=== PATIENT | female | born 1985 | race Caucasian/White ===

== ENCOUNTER 2017-11-09 02:35 | Emergency (ER) | payer SELFPAY ==
[2017-11-09] MEDS ORDERED: Ketorolac Tromethamine 60 MG/2 ML VIAL ONE (03:18)
== END 2017-11-09 03:30 | disposition home or self-care (01) ==
LOC: ERS 02:35
DX: K02.9 Dental caries, unspecified (principal); K03.81 Cracked tooth; E03.9 Hypothyroidism, unspecified; Z79.899 Other long term (current) drug therapy
CPT/HCPCS: 96372; J1885

== ENCOUNTER 2018-10-08 05:26 | Emergency (ER) | payer OTHER, SELFPAY ==
[2018-10-08 06:22] LABS: #Basophils 0.1 thou/uL (0.0-0.2); #Eosinphils 0.6 thou/uL (0.0-0.7); #Lymphocytes 1.8 thou/uL (1.20-3.40); #Monocytes 0.7 thou/uL (0.11-0.59); #Neutrophils 9.1 thou/uL (1.40-6.50); %Basophils 0.6 % (0.0-1.0); %Eosinophils 4.8 % (0.0-10.0); %Lymphocytes 14.8 % (21.0-51.0); %Monocytes 5.7 % (0.0-10.0); %Neutrophils 74.2 % (42.0-75.0); Hemoglobin 12.1 g/dL (12.0-16.0); Mean Corpuscular HGB CONC 33.5 g/dL (32.0-36.0); Mean Corpuscular Hemoglobin 28.2 pg (27.0-31.0); Mean Corpuscular Volume 84.4 fL (78.0-98.0); Mean Platelet Volume 6.8 fL (7.4-10.4); Platelet Count 333 thou/uL (130-400); RBC Distribution Width 15.8 % (11.5-14.5); White Blood Cell (WBC) Count 12.2 thou/uL (4.8-10.8)
[2018-10-08 06:26] LABS: Bilirubin Negative (Negative); Blood, Urine Small (Negative); Clarity CLEAR (Clear); Glucose, Urine (Dipstick) Negative (Negative); Leukocyte Negative (Negative); Nitrite Negative (Negative); Protein, Urine (Dipstick) Negative (Neg-Trace); Specific Gravity, Urine 1.026 (1.002-1.036); Urobilinogen 0.2 mg/dL (0.2-1.0)
[2018-10-08 06:31] LABS: Bacteria/HPF None Seen HPF (None Seen); Hyaline Casts/LPF 4-6 HYALINE CAST LPF (0-3 Hyaline); Pathc Cast-AUWi Flag 1.01 (0-2.49); WBC/HPF 0-3 HPF (0-3)
[2018-10-08 06:33] LABS: ALT (SGPT) 11 U/L (8-55); AST (SGOT) 14 U/L (5-34); Alkaline Phosphatase 53 U/L (40-150); Anion Gap 12 mmol/L (10-20); BUN (Urea Nitrogen) 7 mg/dL (7.0-18.7); Bilirubin, Total 0.4 mg/dL (0.2-1.2); Calc. Creatinine Clearance 0 mL/min (70-130); Calcium 9.6 mg/dL (7.8-10.44); Carbon Dioxide 21 mmol/L (22-29); Chloride 106 mmol/L (98-107); Estimated GFR-MDRD 85; Globulin 3.2 g/dL (2.4-3.5); Glucose 97 mg/dL (70-105); Potassium 3.3 mmol/L (3.5-5.1); Protein, Total 7.2 g/dL (6.0-8.3); Sodium 136 mmol/L (136-145)
--- NOTE | 2018-10-08 08:33 | ULT ---
OBSTETRIC SONOGRAM TRANSABDOMINAL IMAGING: HISTORY: Early . Vaginal bleeding. FINDINGS: Single intrauterine gestation in variable presentation. Heart motion at 165 b.p.m. Measurements cor relate with 11 weeks 5 days gestational age giving an estimated date of delivery of 04/24/2019. A small amount of subchorionic fluid along the anterior margin of the lower uterine segment. Right ovary not well visualized. Left ovary is 2.8 cm with good color and spectral Doppler flow. IMPRESSION: 1. Single viable intrauterine gestation. Estimated gestational age 11 weeks 5 days. 2. Small subchorionic hematoma anterior wall of the lower uterine segment. POS: [facility]
== END 2018-10-08 07:11 | disposition home or self-care (01) ==
LOC: ERS 05:26
DX: O20.0 Threatened abortion (principal); O99.281 Endocrine, nutritional and metabolic diseases complicating pregnancy, first trimester; E03.9 Hypothyroidism, unspecified; Z79.899 Other long term (current) drug therapy; Z3A.11 11 weeks gestation of pregnancy
CPT/HCPCS: 36415; 51701; 76856; 80053; 81003; 81015; 84702; 85025; 86900; 86901; 93976; A4353

== ENCOUNTER 2019-01-16 16:32 | Emergency (ER) | payer OTHER ==
[2019-01-16] MEDS ORDERED: Acetaminophen 500 MG TAB ONE (17:01)
== END 2019-01-16 17:35 | disposition home or self-care (01) ==
LOC: SCSER 16:32
DX: O99.512 Diseases of the respiratory system complicating pregnancy, second trimester (principal); J10.1 Influenza due to other identified influenza virus with other respiratory manifestations; Z3A.20 20 weeks gestation of pregnancy; Z77.22 Contact with and (suspected) exposure to environmental tobacco smoke (acute) (chronic); Z79.899 Other long term (current) drug therapy
CPT/HCPCS: 87804; 99283

== ENCOUNTER 2019-02-28 22:51 | Emergency (ER) | payer OTHER | END 2019-02-28 23:42 | disposition short-term general hospital (02) | LOC: SCSER 22:51 | DX: O36.8130 Decreased fetal movements, third trimester, not applicable or unspecified (principal); O16.3 Unspecified maternal hypertension, third trimester; Z3A.12 12 weeks gestation of pregnancy; Z79.899 Other long term (current) drug therapy | CPT/HCPCS: 99284 ==

== ENCOUNTER 2019-03-01 00:11 | Inpatient (IN) | payer OTHER ==
--- NOTE | 2019-03-01 00:34 | PDOC.LDHP ---
Labor and Delivery H&P Chief complaint: decreased movement HPI: Patient of Mackenzie Hollis Here from [facility] Here for Decreased FM (FHTs documented at [facility]) Patient is a 33 yo G1 at 32 weeks by her stated EGA, here for decreased FM most of the day. She called Dr Hollis and told her also of pink dsch with Dr hollis stated was likely from recent coitus. No GILLESPIE, no VB, no LOF. BP in [facility] was 178/ 108 but was 128/92 immediately retaken (per ED MD phone call). BP on their retake was 144/99 Review of Systems: complete ROS completed and as per HPI Current gestational age (weeks): 32 Grav: 1 Para: 0 Current complications: other (HX SVT on Toprol) Current medications: pre- vitamins Previous surgical history: none Allergies/Adverse Reactions: Allergies Allergy/AdvReac Type Severity Reaction Status Date / Time No Known Drug Allergies Allergy Unverified 02/13/15 17:50 Social history: none - Physical Exam Abnormal vital signs: 179/89 18 90 afebrile General: NAD, resting Heart: RRR Lungs: CTAB Abdomen: gravid Extremeties: no edema FHT: category 1 [place] contractions every: CTX on toco about every 2 min - Assessment Decreased FM at 32 weeks, G1, HX SVT on Toprol...now with severe range BPs. - Plan Plan: admit to L&D (I have notified Dr Hollis. I have discussed severe range BPs with the patient and her . I will start celestone in case delivery is needed.I will order a BPP. We will do serial BPs in L&D. I have ordered a CMP, CBC and Up/cr. I have added a transvag sono for CX length due to "pink dsch"..I do not suspect LOF. Per personal communication with Dr Hollis, patient also has high anxiety state...this may be contributing some to BP. She has requested I start IVFs as well...will order LR.)
[2019-03-01] MEDS ORDERED: Promethazine HCl 25 MG/ML VIAL IM PRN ×4 (00:52→11:00)
[2019-03-01] MEDS ORDERED: Butorphanol Tartrate 1 MG/ML VIAL SLOW IVP PRN (00:52)
[2019-03-01] MEDS ORDERED: Ondansetron PF 4 MG/2 ML Vial IVP PRN ×4 (00:52→06:52)
[2019-03-01] MEDS ORDERED: Betamet Acet/Betamet Na Ph 30 MG/5 ML VIAL IM SCH (01:00)
[2019-03-01] MEDS ORDERED: Lactated Ringer's 500 ML IV SCH (01:00)
[2019-03-01 01:02] VITALS: BMI 27.8
--- NOTE | 2019-03-01 01:07 | PDOC.EVN ---
Event Note - Event Note Event Note: If repeat BP still severe range (15-20 minutes after first)...will need labetolol 20mg SIVP stat
[2019-03-01] MEDS ORDERED: Labetalol HCl 100 MG/20 ML VIAL SLOW IVP SCH (01:15)
[2019-03-01] MEDS: Lactated Ringer's 1,000 ML IV SCH ×2 (01:19→14:06)
[2019-03-01] MEDS ORDERED: Labetalol HCl 100 MG/20 ML VIAL ONE (01:19)
[2019-03-01 01:59] LABS: Hemoglobin 13.2 g/dL (12.0-16.0); Mean Corpuscular HGB CONC 34.6 g/dL (32.0-36.0); Mean Corpuscular Hemoglobin 32.6 pg (27.0-31.0); Mean Corpuscular Volume 94.3 fL (78.0-98.0); Mean Platelet Volume 7.7 fL (7.4-10.4); Platelet Count 333 thou/uL (130-400); RBC Distribution Width 11.6 % (11.5-14.5); Red Blood Cell (RBC) Count 4.04 mill/uL (4.20-5.40)
[2019-03-01 02:12] LABS: ALT (SGPT) 11 U/L (8-55); AST (SGOT) 16 U/L (5-34); Albumin 3.9 g/dL (3.5-5.0); Alkaline Phosphatase 101 U/L (40-150); Anion Gap 15 mmol/L (10-20); BUN (Urea Nitrogen) 6 mg/dL (7.0-18.7); Bilirubin, Total 0.4 mg/dL (0.2-1.2); Calc. Creatinine Clearance 123 mL/min (70-130); Calcium 9.5 mg/dL (7.8-10.44); Carbon Dioxide 23 mmol/L (22-29); Chloride 107 mmol/L (98-107); Estimated GFR-MDRD Greater than 90; Glucose 79 mg/dL (70-105); Potassium 3.8 mmol/L (3.5-5.1); Protein, Total 6.9 g/dL (6.0-8.3); Sodium 141 mmol/L (136-145)
--- NOTE | 2019-03-01 02:26 | PDOC.EVN ---
Event Note - Event Note Event Note: Follow up: Patient did recieve/require labetolol 20mg SIVP x 1...BPs now 120-130s/80s. BPP in progress. I reviewed the FHT tracing prior to BPP...minimal variability noted....await remainder of BPP. Sono tech did show me umbilical doppler..some reversal of flow noted. I have added biometrics to see if growth restricted.
[2019-03-01 02:30] LABS: HBSAg Index 0.33 S/CO (0-0.99); HIV (1/2) Antibody/Antigen Non-Reactive (NonReactive); HIV 1/2 INDEX 0.21 S/CO (<1.00); Hep B Surf Ag Non-Reactive S/CO (NonReactive)
[2019-03-01] MEDS ORDERED: Calcium Gluc 4.6 MEQ/10 ML (100 MG/ML) SLOW IVP PRN (02:57)
--- NOTE | 2019-03-01 02:57 | PDOC.EVN ---
Event Note - Event Note Event Note: Sono: [id number] which is less than 2.5th percentile for EGA based on weight to EGA chart. Baby vertex. BPP is 6/10 (with NST). Will relay to Dr Swartz...I recommend delivery for PRECLAMPSIA with the reversal of flow and growth restriction, per ACOG guidelines (PB on Growth Restriction) MagSulfate ordered. CX is 3cm.
[2019-03-01 02:59] LABS: Creatinine, Urine 94.04 mg/dL (47-110)
[2019-03-01] MEDS ORDERED: Magnesium Sulfate 20 GM/WATER 500 ML BAG IVPB SCH (03:00)
[2019-03-01] MEDS ORDERED: Magnesium Sulfate 20 gm/500 ml 20 GM/500 ML BAG IVPB SCH (03:00)
[2019-03-01] MEDS ORDERED: HYDROcodone/Acetaminophen 5/325 mg Tablet PO PRN ×3 (04:20→18:00)
[2019-03-01] MEDS ORDERED: NS / Oxytocin 40 units/1000ml 1,000 ML IV PRN (04:20)
[2019-03-01] MEDS ORDERED: Lidocaine 1% (PF) 30 ML VIAL SC PRN (04:20)
[2019-03-01] MEDS ORDERED: Ibuprofen 800 MG TAB PO PRN (04:20)
[2019-03-01] MEDS ORDERED: NS w/ Oxytocin 10 units 0 ML ONE (04:21)
[2019-03-01] MEDS ORDERED: Bicitra 30 ML UDCUP ONE (04:43)
[2019-03-01] MEDS ORDERED: CEFAZOLIN 2 GM in Premix Bag 1 BAG IVPB SCH (05:00)
[2019-03-01] MEDS ORDERED: CEFAZOLIN 1 GM in Sodium Chloride 0.9% 100 ML IVPB SCH (05:00)
[2019-03-01] MEDS ORDERED: Fentanyl 100 MCG/2 ML VIAL ONE (05:06)
[2019-03-01] MEDS ORDERED: MORPHINE 5 MG/10 ML PF VIAL ONE ×2 (05:07→07:31)
[2019-03-01] MEDS ORDERED: Ondansetron PF 4 MG/2 ML Vial ONE ×2 (05:07→13:16)
[2019-03-01] MEDS ORDERED: Oxytocin 10 UNITS/ML VIAL ONE (05:07)
[2019-03-01] MEDS ORDERED: ePHEDrine/0.9% NaCl/PF SYRINGE 50 mg/10 ml ONE (05:07)
[2019-03-01] MEDS ORDERED: Dexamethasone 4 mg/ml Vial ONE (05:07)
[2019-03-01] MEDS ORDERED: Ketorolac Tromethamine 30 MG/ML VIAL ONE ×2 (05:07→13:16)
[2019-03-01] MEDS ORDERED: PHENYLEPHRINE-NS 100 MCG/ML 10 ML SYRINGE ONE (05:08)
[2019-03-01 05:11] LABS: Syphilis Antibody Nonreactive (Nonreactive); Syphilis Antibody Index 0.03 S/CO (<1.00 Non-Reactive)
[2019-03-01] MEDS ORDERED: HYDROmorphone 2 MG/ML VIAL SLOW IVP PRN (05:53)
[2019-03-01] MEDS ORDERED: Ondansetron HCl/PF 4 MG/2 ML Vial IVP PRN (05:53)
[2019-03-01] MEDS ORDERED: L&D-Morphine 4 MG/ML VIAL SLOW IVP PRN (05:53)
[2019-03-01] MEDS ORDERED: diphenhydrAMINE 50 MG/ML VIAL IVP PRN ×2 (05:54→10:55)
[2019-03-01] MEDS ORDERED: Promethazine HCl 25 MG SUPP PR PRN ×2 (05:54→11:00)
[2019-03-01] MEDS ORDERED: Eucerin (Mineral Oil/Petrolatum,White) 30 gm Jar TOP PRN (05:54)
[2019-03-01] MEDS ORDERED: Ketorolac Tromethamine 30 MG/ML VIAL IVP PRN ×2 (05:54→11:00)
[2019-03-01] MEDS ORDERED: Naloxone HCl 0.4 mg/ml Vial IV PRN ×3 (05:54→11:01)
[2019-03-01] MEDS ORDERED: Naloxone HCl 0.4 mg/ml Vial IVP PRN ×3 (05:54→11:00)
[2019-03-01] MEDS ORDERED: Ketorolac Tromethamine 30 MG/ML VIAL IVP SCH (06:00)
[2019-03-01] MEDS ORDERED: Communication Order-Pharmacy FS SCH (06:00)
[2019-03-01 06:07] LABS: pH (Cord, venous) 7.09 (7.32-7.43)
[2019-03-01] MEDS ORDERED: diphenhydrAMINE 25 MG CAP PO PRN ×2 (06:52→20:41)
[2019-03-01] MEDS ORDERED: Adacel (T-DAP) 0.5 ML SYRINGE IM ONE (06:52)
[2019-03-01] MEDS ORDERED: Zolpidem Tartrate 5 MG TAB PO PRN (06:52)
[2019-03-01] MEDS ORDERED: NS / Oxytocin 40 units/1000ml 1,000 ML IV SCH (07:00)
[2019-03-01] MEDS ORDERED: Meperidine HCl/PF 25 MG/ML VIAL ONE ×2 (07:03→07:39)
[2019-03-01] MEDS: Meperidine HCl/PF 25 MG/ML VIAL SLOW IVP PRN ×2 (07:04→07:39)
[2019-03-01] MEDS ORDERED: Promethazine HCl 25 MG/ML VIAL ONE (07:11)
--- NOTE | 2019-03-01 07:46 | ULT ---
PRELIMINARY REPORT/[facility]/EMERGENCY AFTER HOURS PROCEDURE: Addendum created by Lenka Villarreal MD on 03/01/2019 4:31 AM Central Time ( & [place]) Findings were discussed with Dr. Swartz at 03/01/2019 4:30 AM CDT. Initial Report created on 03/01/2019 4:23 AM Central Time ( & [place]) EXAM: US Doppler Velocimetry of the Umbilical Artery EXAM DATE/TIME: 03/01/2019 2:00 AM CLINICAL HISTORY: 33 years old, female; Signs and symptoms; Lmp or gestational age (in weeks): 32wks; Other: Pih, decreased movement; TECHNIQUE: Imaging protocol: US Doppler velocimetry of the umbilical artery with Doppler color and waveform analysis. COMPARISON: No relevant prior studies available. FINDINGS: Umbilical cord and insertion: Cord insertion not evaluated on this exam. Umbilical artery Doppler: Reversal of flow visualized in the umbilical artery. Umbilical artery peak systolic velocity: Peak systolic velocity -45 cm/s Umbilical artery systolic to diastolic ratio: S/D ratio 2.87 IMPRESSION: Abnormal umbilical artery Doppler exam with reversed end diastolic flow. EXAM: US , Transvaginal EXAM DATE/TIME: 03/01/2019 2:00 AM CLINICAL HISTORY: 33 years old, female; Signs and symptoms; Lmp or gestational age (in weeks): 32wks; Other: Pih, decreased movement; TECHNIQUE: Imaging protocol: Real-time transvaginal obstetrical ultrasound of the maternal pelvis and a first trimester with image documentation. Transvaginal imaging was used for better evaluation of the fetus and adnexa. COMPARISON: No relevant prior studies available. FINDINGS: GESTATION: Gestation: Single living intrauterine gestation. Heart rate: heart rate 128 beats per minute. Presentation: Vertex positioning. Placenta: Left placenta. Amniotic fluid: SAMEER 14.3 cm. BIOMETRY: Estimated gestational age: Gestational age by ultrasound estimated at 29 weeks and 0 days. Clinical gestational age of 32 weeks and 5 days. Estimated weight: Estimated weight of 1232 g. Biparietal diameter: Biparietal diameter 7.6 cm, which would correspond to a 30 week and 3 day . Head circumference: Head circumference 26.8 cm which would correspond to a 28 week and 3 day . Abdominal circumference: Abdominal circumference 24.2 cm, which would correlate to a 28 week and 4 day . Femur length: Femur length 5.2 cm, which would correspond to a 27 week and 5 day . MATERNAL: Cervix: The cervix is shortened to 0.5 cm. IMPRESSION: 1. Single living intrauterine gestation which is small for gestational age for provided LMP of 07/15/2018. 2. Cervical shortening to 0.5 cm. EXAM: US Biophysical Profile Without Non-Stress Test EXAM DATE/TIME: 03/01/2019 2:00 AM CLINICAL HISTORY: 33 years old, female; Signs and symptoms; Lmp or gestational age (in weeks): 32wks; Other: Pih, decreased movement; TECHNIQUE: Imaging protocol: US biophysical profile without non-stress testing. COMPARISON: No relevant prior studies available. FINDINGS: Breathin/2 Gross body movements: 2/2 tone: 2/2 Qualitative amniotic fluid: 2/2 IMPRESSION: Biophysical profile score is 6 out of 8. Thank you for allowing us to participate in the care of your patient. Dictated and Authenticated by: Lenka Villarreal MD 03/01/2019 4:23 AM Central Time ([place] & [place]) FINAL REPORT SONOGRAPHIC BIOPHYSICAL PROFILE EXAM PELVIC SONOGRAM TRANSVAGINAL IMAGING UMBILICAL SPECTRAL DOPPLER EVALUATION 03/01/2019 performed on emergency basis at 0235 hours HISTORY: Decreased movement. Third trimester gestation. FINDINGS: Agree with the preliminary report by Dr. Villarreal from [facility]. Sonographic biophysical profile score is 6/8. breathing movement not well visualized. Single intrauterine gestation, small for gestational age. Shortening of the cervix at 0.5 cm. Reversa l of flow was shown in the umbilical artery. Transcribed Date/Time: 03/01/2019 8:31 AM
[2019-03-01] MEDS: Morphine 4 MG/ML VIAL SLOW IVP PRN ×2 (08:17→10:58)
[2019-03-01] MEDS ORDERED: Morphine 2 MG/ML SYRINGE SLOW IVP PRN (11:06)
[2019-03-01] MEDS: Metoprolol Tartrate 100 MG TAB PO SCH ×2 (11:44→20:50)
[2019-03-01] MEDS ORDERED: Dexamethasone 20 MG/5 ML VIAL ONE (13:16)
[2019-03-01] MEDS ORDERED: ePHEDrine 50 MG/ML VIAL ONE (13:16)
[2019-03-01] MEDS: Simethicone Chewable 80 MG TAB PO PRN ×2 (13:35→20:50)
[2019-03-01] MEDS: HYDROcodone/Acetaminophen 5/325 mg Tablet PO PRN (17:55)
[2019-03-02] MEDS ORDERED: Ibuprofen 800 MG TAB PO SCH (06:00)
[2019-03-02] MEDS: HYDROcodone/Acetaminophen 5/325 mg Tablet PO PRN ×4 (09:32→21:47)
[2019-03-02] MEDS: Simethicone Chewable 80 MG TAB PO PRN ×2 (09:48→21:46)
[2019-03-02] MEDS: Docusate Calcium (SURFAK) 240 MG CAP PO PRN ×2 (09:48→21:46)
[2019-03-02] MEDS: Ibuprofen 800 MG TAB PO SCH ×2 (10:40→18:40)
[2019-03-02] MEDS: Metoprolol Tartrate 100 MG TAB PO SCH ×2 (10:49→21:46)
--- NOTE | 2019-03-02 16:15 | DN ---
DATE OF PROCEDURE: 03/01/2019 ADMITTING DIAGNOSES: 1. A 33-year-old, G1, at 32 weeks and 5 days with decreased movement. 2. Intrauterine growth restriction by ultrasound with noted umbilical Doppler reverse flow. 3. Non-reassuring heart tracing with a BPP performed, 04/05. 4. Prematurity, status post betamethasone x1 and then magnesium for neuroprotection. 5. Advanced cervical dilation at 3 cm, 70% effaced, and -3 station, but remote from delivery. 6. Unknown group B strep. POSTOPERATIVE DIAGNOSES: 1. A 33-year-old, G1, at 32 weeks and 5 days with decreased movement. 2. Intrauterine growth restriction by ultrasound with noted umbilical Doppler reverse flow. 3. Non-reassuring heart tracing with a BPP performed, 04/05. 4. Prematurity, status post betamethasone x1 and then magnesium for neuroprotection. 5. Advanced cervical dilation at 3 cm, 70% effaced, and -3 station, but remote from delivery. 6. Unknown group B strep. 7. Live-born male weighing 3 pounds 5 ounces with Apgars of 8 and 9 at one and five minutes respectively. PROCEDURE PERFORMED: Primary low-transverse section. INFANT CHILDCARE PROVIDER: Dr. Nicolas, Resident CLINICAL HISTORY: This patient is a 33-year-old, G1, who presented to Labor and Delivery triage at 32 weeks and 5 days for decreased movement. The patient was placed on the monitor and noted a nonreassuring heart tracing with a minimal variability, baseline, and no accelerations. Initially, she was mariah every 2 minutes, but was unaware that she was mariah regularly. The patient noted that she had not really felt movement for several hours since the day prior. The day prior, she had actually called her primary OB for complaint of vaginal spotting. The patient recently had intercourse and was given appropriate instructions to manage at that point in time, noting labor precautions and to have pelvic rest until her followup appointment. The patient also was being followed for small for gestational age as her last growth ultrasound at 29 weeks was significant for an estimated weight in the 10th percentile. The patient did not complain of decreased movement at that time, and when notified of her presence in Labor and Delivery, was advised to get a bolus of 2 L IV fluids, then follow at a rate and to await the laboratory and imaging studies ordered by the laborist on-call. A few hours later, a message regarding the followup exam was given and it was noted that the patient had a continued nonreassuring heart tracing without accelerations and BPP of 6/10. The ultrasonography also showed umbilical Dopplers with reverse flow and IUGR without a percentile given. The patient was ordered to receive betamethasone x1 for lung maturity and the plans for magnesium for neuroprotection were made. The patient had been checked and was noted to be 3-cm, 70% effaced, and -3 station, and at this point, she was no longer mariah. For unknown group B strep status, she was given Ancef despite a remote history of penicillin, which she thought rash was her reaction, and plans for a delivery by were made. DESCRIPTION OF PROCEDURE: The patient was taken to the operating room, where spinal anesthesia was obtained. She was laid in a supine position, and her Morgan catheter had been placed with the start of the magnesium and was draining clear fluid. She was prepped and draped in the usual sterile fashion, and after testing for adequate anesthesia, an incision was made in the lower abdomen in a Pfannenstiel manner, and this incision was carried down to the fascia. The fascia was then nicked in the midline and extended bilaterally. Bravo clamps x2 were used to elevate the rectus muscles, also the superior fascial border, and in similar fashion, the rectus and pyramidalis muscles were dissected off the lower fascial border. The muscles were then in the midline, and the peritoneum was breeched. This incision was then extended out bilaterally, and a bladder blade was placed. A bladder flap was then created with Metzenbaum and [place] pickups, and the incision on the uterus was then performed to the layer of the amnion. An amniotomy was performed with clear fluid, and the surgeon's hand was placed into the uterus and the head was delivered. It was noted that there was a loose nuchal cord around the neck, that was easily reduced. The cord was wrapped twice. The delivery of the anterior shoulder followed by the posterior shoulder, followed by the remainder of the 's body was performed. The cord was doubly clamped and cut, and the infant was shown to the parents and then handed off to the Neonatology nurses in attendance to the delivery. The infant was vigorous at that time. A section of the cord was taken for cord gas, which was resulted as a pH of 7.09. The placenta was then delivered manually intact with a 3-vessel cord, and the placenta was sent to Pathology for evaluation. The uterus was then exteriorized, and it was noted to already be firm. I cleansed of all debris, and the incision was then closed in a running locking fashion with excellent hemostasis. A second imbricating incision was performed, and the bladder flap was then reapproximated to the anterior surface of the uterus. The gutters were then cleansed of all debris, and Seprafilm was placed over the anterior surface of the uterus and the incision and secured with sterile water. Once this was performed, the uterus was placed back into the abdomen and the peritoneum was closed in a running fashion. The rectus muscles were reapproximated with [id number] sutures, and the prefascial gutters were cleansed of all debris. The fascia was then closed in a running fashion, and the subcutaneous tissues were irrigated, and the Bovie cautery was used to correct any bleeding. The subcutaneous tissues were then reapproximated with interrupted sutures of 2-0 plain gut, and the skin was closed in a running fashion with excellent hemostasis. Closure was then reinforced with Steri-Strips and Mastisol, and a Telfa and 4x4 with Tegaderm pressure dressing were placed over the incision. The patient tolerated the procedure well, and all needle, sponge, lap, and instrument counts were correct at the end of the procedure. She was able to recover in the recovery room in satisfactory condition. Her infant was taken to the NICU for continued care. Again, it was a live-born male weighing 3 pounds 5 ounces with Apgars of 8 and 9 at one and five minutes respectively. There were no other issues surrounding this delivery. IV FLUIDS: 2300. ESTIMATED BLOOD LOSS: 300. QUANTITATIVE BLOOD LOSS: 265. URINE OUTPUT: 350 of clear urine. The magnesium was stopped immediately post delivery, and the patient continued to recover in satisfactory condition. There were no other issues surrounding this delivery. Job ID: [id number]
[2019-03-03] MEDS: Ibuprofen 800 MG TAB PO SCH ×3 (02:01→17:26)
[2019-03-03] MEDS: HYDROcodone/Acetaminophen 5/325 mg Tablet PO PRN ×4 (02:06→15:06)
[2019-03-03] MEDS: Simethicone Chewable 80 MG TAB PO PRN (06:28)
[2019-03-03] MEDS: Metoprolol Tartrate 100 MG TAB PO SCH (09:51)
[2019-03-03] MEDS: Docusate Calcium (SURFAK) 240 MG CAP PO PRN (09:51)
[2019-03-03 12:27] VITALS: BP 129/74; TEMP 97.6
--- NOTE | 2019-03-03 13:39 | ULT ---
PRELIMINARY REPORT/[facility]/EMERGENCY AFTER HOURS PROCEDURE: Addendum created by Lenka Villarreal MD on 03/01/2019 4:31 AM Central Time ( & [place]) Findings were discussed with Dr. wSartz at 03/01/2019 4:30 AM CDT. Initial Report created on 03/01/2019 4:23 AM Central Time ( & [place]) EXAM: US Doppler Velocimetry of the Umbilical Artery EXAM DATE/TIME: 03/01/2019 2:00 AM CLINICAL HISTORY: 33 years old, female; Signs and symptoms; Lmp or gestational age (in weeks): 32wks; Other: Pih, decreased movement; TECHNIQUE: Imaging protocol: US Doppler velocimetry of the umbilical artery with Doppler color and waveform analysis. COMPARISON: No relevant prior studies available. FINDINGS: Umbilical cord and insertion: Cord insertion not evaluated on this exam. Umbilical artery Doppler: Reversal of flow visualized in the umbilical artery. Umbilical artery peak systolic velocity: Peak systolic velocity -45 cm/s Umbilical artery systolic to diastolic ratio: S/D ratio 2.87 IMPRESSION: Abnormal umbilical artery Doppler exam with reversed end diastolic flow. EXAM: US , Transvaginal EXAM DATE/TIME: 03/01/2019 2:00 AM CLINICAL HISTORY: 33 years old, female; Signs and symptoms; Lmp or gestational age (in weeks): 32wks; Other: Pih, decreased movement; TECHNIQUE: Imaging protocol: Real-time transvaginal obstetrical ultrasound of the maternal pelvis and a first trimester with image documentation. Transvaginal imaging was used for better evaluation of the fetus and adnexa. COMPARISON: No relevant prior studies available. FINDINGS: GESTATION: Gestation: Single living intrauterine gestation. Heart rate: heart rate 128 beats per minute. Presentation: Vertex positioning. Placenta: Left placenta. Amniotic fluid: SAMEER 14.3 cm. BIOMETRY: Estimated gestational age: Gestational age by ultrasound estimated at 29 weeks and 0 days. Clinical gestational age of 32 weeks and 5 days. Estimated weight: Estimated weight of 1232 g. Biparietal diameter: Biparietal diameter 7.6 cm, which would correspond to a 30 week and 3 day . Head circumference: Head circumference 26.8 cm which would correspond to a 28 week and 3 day . Abdominal circumference: Abdominal circumference 24.2 cm, which would correlate to a 28 week and 4 day . Femur length: Femur length 5.2 cm, which would correspond to a 27 week and 5 day . MATERNAL: Cervix: The cervix is shortened to 0.5 cm. IMPRESSION: 1. Single living intrauterine gestation which is small for gestational age for provided LMP of 07/15/2018. 2. Cervical shortening to 0.5 cm. EXAM: US Biophysical Profile Without Non-Stress Test EXAM DATE/TIME: 03/01/2019 2:00 AM CLINICAL HISTORY: 33 years old, female; Signs and symptoms; Lmp or gestational age (in weeks): 32wks; Other: Pih, decreased movement; TECHNIQUE: Imaging protocol: US biophysical profile without non-stress testing. COMPARISON: No relevant prior studies available. FINDINGS: Breathin/2 Gross body movements: 2/2 tone: 2/2 Qualitative amniotic fluid: 2/2 IMPRESSION: Biophysical profile score is 6 out of 8. Thank you for allowing us to participate in the care of your patient. Dictated and Authenticated by: Lenka Villarreal MD 03/01/2019 4:23 AM Central Time ([place] & [place]) FINAL REPORT SONOGRAPHIC BIOPHYSICAL PROFILE EXAM PELVIC SONOGRAM TRANSVAGINAL IMAGING UMBILICAL SPECTRAL DOPPLER EVALUATION 03/01/2019 performed on emergency basis at 0235 hours HISTORY: Decreased movement. Third trimester gestation. FINDINGS: Agree with the preliminary report by Dr. Villarreal from [facility]. Sonographic biophysical profile score is 6/8. breathing movement not well visualized. Single intrauterine gestation, small for gestational age. Shortening of the cervix at 0.5 cm. Reversa l of flow was shown in the umbilical artery. Transcribed Date/Time: 03/03/2019 1:39 PM
== END 2019-03-03 17:45 | disposition home or self-care (01) | DRG 788 ==
LOC: L&D/OP 00:11 → L&D 01:47 → OBSVTOIN 01:47 → L&D 05:57 → 3SW 09:27
PROVIDERS: ADMIT Obstetrics & Gynecology; ATTEND Obstetrics & Gynecology
PROC: 10D00Z1 Extraction of Products of Conception, Low, Open Approach (ICD-10-PCS; principal; 2019-03-02)
DX: O36.8130 Decreased fetal movements, third trimester, not applicable or unspecified (principal); O62.0 Primary inadequate contractions; O76 Abnormality in fetal heart rate and rhythm complicating labor and delivery; Z3A.32 32 weeks gestation of pregnancy; Z37.0 Single live birth; O36.5930 Maternal care for other known or suspected poor fetal growth, third trimester, not applicable or unspecified; O14.94 Unspecified pre-eclampsia, complicating childbirth
CPT/HCPCS: 36415; 51702; 76819; 80053; 82570; 82805; 84156; 85027; 86780; 86850; 86900; 86901; 87340; 87389; 88307; 99285; J0690; J0702; J1100; J1885; J2175; J2270; J2405; J2550; J2590; J3010; J3475; J3490; Q0163